=== PATIENT | male | born 1985 | race African-American/Black ===

== ENCOUNTER 2019-04-02 03:32 | Emergency (ER) | payer SELFPAY ==
[2019-04-02] MEDS ORDERED: KETOROLAC TROMETHAMINE INJ/PF 30 MG/1 ML SDV IV ONE (04:15)
--- NOTE | 2019-04-02 04:24 | ER Document Report ---
ED General - General Chief Complaint: Chest Pain Stated Complaint: CHEST PAIN Time Seen by Provider: 04/02/19 03:59 TRAVEL OUTSIDE OF THE [place] IN LAST 30 DAYS: No - HPI Notes: Patient is a 33-year-old male who presents emergency department for evaluation of chest pain. He states it started on Saturday evening. He states is worsened by bending over, lifting packages. Nothing seems to make it better. He states it was constant since onset on Saturday, actually woke him in the middle the night. He denies any associated nausea, diaphoresis, near syncope. The pain does not radiate. He states his pain was slightly better yesterday, but he believes he was to try not pay attention to it. It became worse again today so he presents to the ED for further evaluation. - Related Data Allergies/Adverse Reactions: No Known Allergies Allergy (Verified 04/02/19 03:40) Home Medications: None Past Medical History - General Information source: Patient - Social History Smoking Status: Current Every Day Smoker Frequency of alcohol use: Rare Drug Abuse: None Family History: None, Reviewed & Not Pertinent Patient has suicidal ideation: No Patient has homicidal ideation: No Review of Systems - Review of Systems Constitutional: No symptoms reported EENT: No symptoms reported Cardiovascular: See HPI Respiratory: No symptoms reported Gastrointestinal: No symptoms reported Genitourinary: No symptoms reported Musculoskeletal: See HPI Skin: No symptoms reported Neurological/Psychological: No symptoms reported Physical Exam - Vital signs Vitals: Resp Pulse Ox 28 H 93 04/02/19 03:50 04/02/19 03:50 - Notes Notes: Vital signs reviewed, please refer to chart. Head is normocephalic, atraumatic. Pupils equal round, reactive to light. Neck is supple without meningismus. Heart is regular rate and rhythm. Lungs are clear to auscultation bilaterally. Examination of the chest wall yields no obvious abnormality. He is markedly tender to palpation on the left inferior ribs, from the midclavicular line to the anterior axillary line on the left. Abdomen is soft, nontender, normoactive bowel sounds throughout. Extremities without cyanosis, clubbing. Posterior calves are nontender. Peripheral pulses are equal. Skin is warm and dry. Patient is awake, alert, neurological exam is nonfocal. Course - Re-evaluation Re-evalutation: 04/02/19 04:22 Patient presents to the emergency department for evaluation. He has left-sided chest pain. I suspect this is likely a musculoskeletal pain. He is medicated with Toradol. He does have diffuse ST elevation, likely secondary to early repolarization. Because of this abnormality, however, I was inclined to check blood work. Chest x-ray ordered and pending at this time as well. We will continue to monitor. 04/02/19 05:42 Patient's laboratory investigations are unremarkable. His blood pressures are mildly elevated here, but this could be followed up as an outpatient. Otherwise he is oxygenating well, imaging is unremarkable. We will send him home with anti-inflammatories and muscle relaxers, close follow-up. He is to return to the ED with worsening or new concerning symptoms of any sort. - Vital Signs Vital signs: Temp Pulse Resp BP Pulse Ox 97.7 F 13 133/93 H 100 04/02/19 04:05 04/02/19 05:17 04/02/19 05:17 04/02/19 05:17 - Laboratory Result Diagrams: 04/02/19 04:10 04/02/19 04:10 Laboratory results interpreted by me: 04/02/19 04:10 Carbon Dioxide 31 H - Diagnostic Test Radiology reviewed: Reports reviewed Radiology results interpreted by me: 04/02/19 05:42 Chest X-Ray 04/02/19 04:14 IMPRESSION: No acute findings. No focal lung consolidation. - EKG Interpretation by Me Additional EKG results interpreted by me: 04/02/19 05:56 Sinus mechanism. Normal axis and intervals. ST elevation consistent with early repolarization. No old studies available for comparison. Discharge - Discharge Clinical Impression: Chest wall pain Condition: Stable Disposition: HOME, SELF-CARE Instructions: Chest Wall Pain ([facility]) Additional Instructions: Moist heat to the painful area. Take medications as prescribed. Follow-up with primary care next week. Return to the emergency department if you develop worsening or new concerning symptoms of any sort.
[2019-04-02 04:34] LABS: ABSOLUTE EOSINOPHILS # (AUTO) 0.2 10^3/uL (0.0-0.6); ABSOLUTE MONOCYTES (AUTO) 0.5 10^3/uL (0.1-1.4); TOTAL CELLS COUNTED % (AUTO) 100 %
[2019-04-02 04:39] LABS: ALBUMIN 4.7 g/dL (3.5-5.0); ALKALINE PHOSPHATASE 66 U/L (38-126); ANION GAP 10 (5-19); ASPARTATE AMINO TRANSFERASE 36 U/L (17-59); BILIRUBIN,DIRECT 0.2 mg/dL (0.0-0.4); BILIRUBIN,TOTAL 0.5 mg/dL (0.2-1.3); BLOOD UREA NITROGEN 14 mg/dL (7-20); CARBON DIOXIDE 31 mmol/L (22-30); CHLORIDE 101 mmol/L (98-107); GLUCOSE 90 mg/dL (75-110); POTASSIUM 4.2 mmol/L (3.6-5.0)
[2019-04-02 04:41] LABS: ABSOLUTE BASOPHILS # (AUTO) 0.1 10^3/uL (0.0-0.2); ABSOLUTE LYMPHOCYTES (AUTO) 2.7 10^3/uL (0.5-4.7); BASOPHILS % (AUTO) 0.9 % (0-2); EOSINOPHILS % (AUTO) 2.8 % (0-6); HEMATOCRIT 43.2 % (37.9-51.0); HEMOGLOBIN 14.5 g/dL (13.5-17.0); LYMPHOCYTES % (AUTO) 42.3 % (13-45); MEAN CORPUSCULAR HEMOGLOBIN 30.3 pg (27.0-33.4); MEAN CORPUSCULAR HGB CONC 33.6 g/dL (32.0-36.0); MEAN CORPUSCULAR VOLUME 90 fl (80-97); MONOCYTES % (AUTO) 8.3 % (3-13); PLATELET COUNT 293 10^3/uL (150-450); RED BLOOD COUNT 4.77 10^6/uL (4.35-5.55); RED CELL DISTRIBUTION WIDTH 12.9 % (11.5-14.0); SEGMENTED NEUTROPHILS % (AUTO) 45.7 % (42-78); WHITE BLOOD COUNT 6.5 10^3/uL (4.0-10.5)
--- NOTE | 2019-04-02 05:04 | RADIOLOGY REPORT (SQ) ---
EXAM DESCRIPTION: XR CHEST 2 VIEWS COMPLETED DATE/TME: 04/02/2019 04:14 CLINICAL HISTORY: 33 years, Male, chest pain Comparison: None FINDINGS: No focal lung consolidation. No pleural effusion. No pneumothorax. Cardiac and mediastinal silhouette is unremarkable. No acute osseous abnormality. Soft tissues are unremarkable. IMPRESSION: No acute findings. No focal lung consolidation.
[2019-04-02 07:26] VITALS: BP 131/87
--- NOTE | 2019-04-02 08:46 | EKG REPORT ---
SEVERITY:- NORMAL ECG - SINUS RHYTHM ST ELEV, PROBABLE NORMAL EARLY REPOL PATTERN : Confirmed by: Paulina Payan 02-Apr-2019 08:45:32
== END 2019-04-02 06:36 | disposition home or self-care (01) ==
LOC: ER 03:32
DX: R07.89 Other chest pain (principal); F17.200 Nicotine dependence, unspecified, uncomplicated; I10 Essential (primary) hypertension
CPT/HCPCS: 93005; 36415; 85025; 80053; 84484; 71046; 93010; J1885; 96374; 99285